=== PATIENT | female | born 1990 | race Native Hawaiian/Other Pacific Islander ===

== ENCOUNTER 2020-12-17 08:09 | Outpatient (CLI) | payer OTHER | END 2020-12-17 22:36 | disposition home or self-care (01) | LOC: NM 08:09 | PROVIDERS: ATTEND Internal Medicine Gastroenterology | DX: R11.0 Nausea (principal) | CPT/HCPCS: A9541 ==

== ENCOUNTER 2021-01-07 09:32 | Outpatient (CLI) | payer OTHER | END 2021-01-07 21:19 | disposition home or self-care (01) | LOC: NM 09:32 | PROVIDERS: ATTEND Internal Medicine Gastroenterology | DX: R10.13 Epigastric pain (principal); R11.2 Nausea with vomiting, unspecified | CPT/HCPCS: A9537 ==

== ENCOUNTER 2022-04-02 07:55 | Outpatient (CLI) | payer OTHER | END 2022-04-02 20:50 | disposition home or self-care (01) | LOC: NM 07:55 | PROVIDERS: ATTEND Internal Medicine | DX: R07.89 Other chest pain (principal); K21.9 Gastro-esophageal reflux disease without esophagitis | CPT/HCPCS: A9537 ==